=== PATIENT | female | born 1950 | race Two or more races ===

== ENCOUNTER 2022-01-02 11:28 | Emergency (ER) | payer OTHER, BC ==
[2022-01-02 11:56] VITALS: BP 122/73; PULSE 65; RESP 18; TEMP 98; BMI 30.2
[2022-01-02] MEDS ORDERED: ONDANSETRON *ODT* 4 MG TABLET SL ONE (12:54)
[2022-01-02] MEDS ORDERED: MECLIZINE HCL 25 MG TABLET (FP) PO ONE (12:54)
[2022-01-02] MEDS ORDERED: MECLIZINE HCL 25 MG TABLET (FP) ONE (13:08)
[2022-01-02] MEDS ORDERED: ONDANSETRON *ODT* 4 MG TABLET ONE (13:08)
[2022-01-02 15:27] LABS: BASO % 0.7 % (0-2.0); EOS % 1.5 % (0-4.5); HEMATOCRIT 38.4 % (32.4-45.2); LYMPH % 34.7 % (8-40); MCH 29.3 pg (25.7-33.7); MCHC 33.8 g/dl (32.0-36.0); MEAN CELL VOLUME 86.9 fl (80-96); MEAN PLT VOLUME 9.1 fl (7.5-11.1); MONO % 13.1 % (3.8-10.2); PLATELET COUNT 340 10^3/uL (134-434); RBC 4.42 M/mm3 (3.60-5.2); RDW 13.6 % (11.6-15.6); WHITE BLOOD COUNT 5.7 K/mm3 (4.0-10.0)
[2022-01-02 15:33] LABS: INR 0.95 (0.83-1.09); PROTHROMBIN TIME (PATIENT) 10.9 SEC (9.7-13.0)
[2022-01-02] MEDS ORDERED: METOCLOPRAMIDE HCL INJECTION 10 MG/2 ML VIAL IVPUSH ONE (15:33)
[2022-01-02 15:36] LABS: ACTIVATED PTT 28.3 SECONDS (25.2-36.5)
[2022-01-02 15:45] LABS: ALBUMIN 3.4 g/dl (3.4-5.0); BLOOD UREA NITROGEN 20.6 mg/dL (7-18); CALCIUM 9.7 mg/dL (8.5-10.1)
[2022-01-02 15:48] LABS: CREATININE 0.9 mg/dL (0.55-1.3)
[2022-01-02 15:50] LABS: BILIRUBIN,TOTAL 0.4 mg/dL (0.2-1); TOT PROT 7.6 g/dl (6.4-8.2)
== END 2022-01-02 16:41 | disposition home or self-care (01) ==
LOC: JER 11:28
PROC: 3E033GC Introduction of Other Therapeutic Substance into Peripheral Vein, Percutaneous Approach (ICD-10-PCS; principal; 2022-01-02)
DX: R42 Dizziness and giddiness (principal)
CPT/HCPCS: 36415; 80053; 85025; 85610; 85730; 93005; 93010; 99284-25; Q0162